=== PATIENT | female | born 1980 | race Caucasian/White ===

== ENCOUNTER → 2022-04-29 08:08 | Outpatient (CLI) | payer OTHER, SELFPAY ==
--- NOTE | ~2022-04-29 | MMUS_ITS ---
EXAMINATION: MM diagnostic kylah BI w jeffery, US breast RT limited HISTORY: Palpable lump in the upper outer quadrant of the right breast TECHNIQUE: Craniocaudal, mediolateral, and mediolateral oblique 3-D tomosynthesis images of the [place] ts were performed and synthetic 2-D images were generated. CAD analysis was submitted and interpreted . High resolution limited right breast ultrasound was performed. COMPARISON: 03/24/2018 BREAST PARENCHYMAL COMPOSITION: The breasts are extremely dense, which lowers the sensitivity of mamm ography. FINDINGS: MAMMOGRAPHIC FINDINGS: There is no suspicious mass, calcification, or architectural distortion in either breast to suggest malignancy. There has been no suspicious interval change. No mammographic correlate is identified for the reported palpable abnormality of the right breast. ULTRASOUND: There is no evidence of focal abnormal solid or cystic mass in the vicinity of the reported palpable abnormality of concern. IMPRESSION: 1. No specific mammographic or sonographic correlate is identified for the reported palpable abnormal ity of concern in the right breast. Further evaluation at this time should be based on clinical asses sment. Continued follow-up physical examination is recommended. 2. Recommend routine screening mammography in one year. BI-RADS Category 1: Negative Reviewed, dictated and finalized at location A. IMPRESSION: 1. No specific mammographic or sonographic correlate is identified for the repo rted palpable abnormality of concern in the right breast. Further evaluation at this time should be based on clinical assessment. Continued follow-up physical examination is recommended. 2. Recommend routine screening mammography in one year. BI-RADS Category 1: Negative
== END ==
PROVIDERS: PCP Student in an Organized Health Care Education/Training Program; Visit Provider Student in an Organized Health Care Education/Training Program
DX: N63.11 Unspecified lump in the right breast, upper outer quadrant (principal)
CPT/HCPCS: 76642; 77062; 77066; G0279

== ENCOUNTER 2024-08-29 14:49 | Emergency (ER) | payer OTHER, BC, SELFPAY ==
[2024-08-29 15:02] VITALS: BP 113/72; PULSE 66; RESP 20; TEMP 36.6; O2SAT 100
--- NOTE | 2024-08-29 15:14 | ED.SKABFB ---
HPI - Skin/Abscess/Foreign Bdy General Chief complaint: Wound/Laceration Stated complaint: Right Leg/Ankle Injury Time Seen by Provider: 08/29/24 15:12 Source: patient, RN notes reviewed and old records reviewed Mode of arrival: ambulatory Limitations: no limitations History of Present Illness HPI narrative: 43 year old female presents to express care with complaints of wound to her right lower anterior leg near foot where she was hit by a metal sanches of meat that fell off of a milk grate 2 weeks ago. Patient reports that area is not healing well remains open with some redness and today she noted some yellowish drainage from site. Patient reports that he garber been cleansing with dial soap and peroxide and applying Neosporin ointment Patient reports that she has had no fevers and that her tetanus is up to date. MD complaint: other (wound) Onset (ago): week(s) (2) Tetanus up to date: yes Location: RLE (near anterior ankle) Severity scale (1-10): 2 Quality: burning and other (soreness) Treatments prior to arrival: other (cleansed with dial soap and peroxide and using Neosporin ointment) Related Data Home Medications Medication Instructions Recorded Confirmed levonorgestrel 21 mcg/24 hr (up to 1 insert intrauterine ONCE 06/29/21 08/29/24 8 years) 52 mg intrauterine device (Mirena) Allergies Allergy/AdvReac Type Severity Reaction Status Date / Time No Known Allergies Allergy Verified 08/29/24 15:17 Review of Systems Review of Systems: CONSTITUTIONAL: Denies fever, chills, or sweats. CARDIOVASCULAR: Denies chest pain, palpitations, or edema. RESPIRATORY: Denies cough or dyspnea. SKIN: Reports wound to the lower anterior leg near foot for the past 2 weeks and is not healing, some yellowish drainage noted from wound today MUSCULOSKELETAL: Denies musculoskeletal pain NEUROLOGIC: Denies numbness, or weakness. All systems reviewed & are unremarkable except as noted in HPI and below PMFSH Past Medical History Medical History History of ectopic x 2 Surgical History Surgical History Tubal ligation status Family History Family History Grandparent Family history of malignant neoplasm of ovary Social History Social History Smoking packs per day: 1 Smoking cigarettes per day: 20.0 Years smoked: 30 Smoking pack-years: 30.00 Smoking status: Current every day smoker Second hand tobacco smoke exposure: No Alcohol intake: current Alcohol use details: very rare Substance use: current Substance use type: marijuana Gender identity (if verbalized by the patient): Female Comments At time of signature, agree with nursing past medical, surgical, social and family history. There is no relevant family history pertinent to the presenting complaint Exam Narrative: GENERAL: Well-appearing, well-nourished, and in no acute distress. HEAD: Normocephalic, atraumatic. NECK: Supple.no lymphadenopathy CHEST: Clear to auscultation. No respiratory distress.SAO2 100% on room air HEART: Regular rate and rhythm. No murmur heard. Normal peripheral pulses. EXTREMITIES: Normal range of motion. No edema. SKIN: Warm, dry, no rash. Reports 1.2cm linear wound to the anterior distal right lower leg which occurred when a sanches fell off counter and hit her 2 weeks ago some redness around wound site,no drainage noted at this time, patient reports that she noted some yellowish drainage earlier today, tenderness and burning sensation at site. no fevers.no induration or any fluctuant tissue. NEURO: No focal deficits. Alert and oriented x3. Course Course Level of Care: Express Care Visit Vital Signs Vital signs: Vital Signs Temperature 36.6 C 08/29/24 15:02 Pulse Rate 66 08/29/24
== END 2024-08-29 15:40 | disposition home or self-care (01) ==
PROVIDERS: Emergency Provider Registered Nurse
DX: S81.801A Unspecified open wound, right lower leg, initial encounter (principal); W20.8XXA Other cause of strike by thrown, projected or falling object, initial encounter; F17.210 Nicotine dependence, cigarettes, uncomplicated
CPT/HCPCS: 90471; 99213; G0463